=== PATIENT | male | born 2000 | race Caucasian/White ===

== ENCOUNTER 2020-01-04 21:20 | Emergency (ER) | payer MEDICAID, OTHER ==
[~2020-01-04] VITALS: Ht 170.2 cm; Wt 81.6 kg
[2020-01-04 21:30] VITALS: BP 145/71
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
--- NOTE | 2020-01-04 22:26 | NUR ---
Patient given written and verbal discharge instructions. Patient verbalizes understanding of instructions. Patient is ambulatory with steady gait. Refuses offer of correction placement. Patient given list of available shelters in surrounding area.
== END 2020-01-04 22:27 | disposition home or self-care (01) ==
LOC: ER 21:24
DX: S00.31XA Abrasion of nose, initial encounter (principal); L03.114 Cellulitis of left upper limb; I10 Essential (primary) hypertension; Z59.0 Homelessness; Y04.0XXA Assault by unarmed brawl or fight, initial encounter; Y93.89 Activity, other specified; Y92.89 Other specified places as the place of occurrence of the external cause; Y99.8 Other external cause status